=== PATIENT | male | born 2000 | race Caucasian/White ===

== ENCOUNTER 2020-10-22 19:17 | Emergency (ER) | payer OTHER ==
--- NOTE | 2020-10-22 19:51 | EDM.PDOC ---
ED HPI GENERAL MEDICAL PROBLEM - General Chief Complaint: Gastrointestinal Problem Stated Complaint: FLU SYMPTOMS RIGHT SIDE RIB AND SHOULDER PAIN Time Seen by Provider: 10/22/20 19:34 Source of Information: Reports: Patient, Other (Neighbor/friend) History Limitations: Reports: No Limitations - History of Present Illness INITIAL COMMENTS - FREE TEXT/NARRATIVE: Mr. Washington is a very pleasant 20-year-old gentleman who now presents the ED stating that he developed nausea, vomiting, watery diarrhea this past , 10/20/2020. He has also had abdominal cramps whenever he tries to eat or drink anything since evening. He then developed upper right anterior chest/shoulder, and lower right lateral rib pain today, however, that pain is only present if he takes a deep breath. No recent fever or cough, however, he states that he feels slightly dyspneic. No prior similar symptoms. The patient notes that several of his coworkers are similarly ill. The patient states that he took some ibuprofen yesterday, but none today. Here in the ED, the patient's initial BP is found to be mildly elevated at 147/83, with slight tachycardia of 103 bpm. He is afebrile, saturating 94% on room air. Prior to , the patient denies having a recent fever, chills, sore throat, ear pain, nasal or sinus congestion, cough, dyspnea, chest pain, palpitations, nausea, vomiting, constipation, diarrhea, abdominal pain, urinary symptoms, recent weight gain or weight loss, recent bloody bowel movements or black bowel movements, recent joint aches, headaches, or rashes. The patient's PCP is Dr. Harry Blank. He has not received an influenza vaccine this season, but is agreeable to getting one here in the ED tonight. - Related Data Allergies Allergy/AdvReac Type Severity Reaction Status Date / Time No Known Allergies Allergy Verified 10/22/20 19:27 Home Meds: Home Meds Escitalopram Oxalate [Lexapro] 20 mg PO DAILY 10/22/20 [History] Ondansetron [Zofran ODT] 1 tab PO Q8H PRN #10 tab.dis 10/22/20 [Rx] hydrOXYzine HCL [hydrOXYzine] 25 mg PO DAILY 10/22/20 [History] traZODone 50 mg PO DAILY 10/22/20 [History] Past Medical History Psychiatric History: Reports: Anxiety, Depression, PTSD Endocrine/Metabolic History: Reports: Obesity/BMI 30+ - Past Surgical History HEENT Surgical History: Reports: Oral Surgery (dental extractions) Social & Family History - Tobacco Use Tobacco Use Status *Q: Never Tobacco User Second Hand Smoke Exposure: No - Caffeine Use Caffeine Use: Reports: None - Alcohol Use Alcohol Use History: Yes Alcohol Use Frequency: Socially - Recreational Drug Use Recreational Drug Use: No - Living Situation & Occupation Living situation: Reports: Single, Other (with friends) Occupation: Employed ([employer]) ED ROS GENERAL - Review of Systems Review Of Systems: Comprehensive ROS is negative, except as noted in HPI. ED EXAM, GENERAL - Physical Exam Exam: See Below Exam Limited By: No Limitations General Appearance: Alert, WD/WN, No Apparent Distress Eye Exam: Bilateral Eye: EOMI, Normal Inspection Ears: Normal External Exam, Normal Canal, Hearing Grossly Normal, Normal TMs Nose: Normal Inspection, Normal Mucosa, No Blood Throat/Mouth: Normal Inspection, Normal Lips, Normal Teeth, Normal Gums, Normal Oropharynx, Normal Voice, No Airway Compromise Head: Atraumatic, Normocephalic Neck: Normal Inspection, Supple, Non-Tender, Full Range of Motion. No: Lymphadenopathy (L), Lymphadenopathy (R) Respiratory/Chest: No Respiratory Distress, Lungs Clear, Normal Breath Sounds, No Accessory Muscle Use, Chest Non-Tender. No: Decreased Breath Sounds, Crackles, Rhonchi, Wheezing, Stridor, Prolonged Expiration Cardiovascular: Normal Peripheral Pulses, Regular Rate, Rhythm, No Gallop, No JVD, No Murmur, No Rub Peripheral Pulses: 3+: Radial (L), Radial (R) GI/Abdominal: Normal Bowel Sounds, Soft, Non-Tender, No Organomegaly, No Distention, No Abnormal Bruit, No Mass Back Exam: Normal Inspection, Full Range of Motion, NT Extremities: Normal Inspection, Normal Range of Motion, Normal Capillary Refill Neurological: Alert, Oriented, Normal Cognition, No Motor/Sensory Deficits Psychiatric: Normal Affect Skin Exam: Warm, Dry, Intact, Normal Color, No Rash Course - Vital Signs Last Recorded V/S: Last Vital Signs Temp 36.3 C 10/22/20 19:24 Pulse 103 H 10/22/20 19:24 Resp 16 10/22/20 19:24 BP 147/83 H 10/22/20 19:24 Pulse Ox 94 L 10/22/20 19:24 - Orders/Labs/Meds Orders: Active Orders 24 hr Category Date Time Status Chest 2V [CR] Stat Exams 10/22/20 19:46 Taken CBC WITH MANUAL DIFF [HEME] Stat Lab 10/22/20 20:00 Results Labs: Laboratory Tests 10/22/20 10/22/20 10/22/20 Range/Units 20:00 20:00 20:00 WBC 6.85 (4.23-9.07) K/mm3 RBC 5.48 (4.63-6.08) M/mm3 Hgb 15.3 (13.7-17.5) gm/dl Hct 46.1 (40.1-51.0) % MCV 84.1 (79.0-92.2) fl MCH 27.9 (25.7-32.2) pg MCHC 33.2 (32.2-35.5) g/dl RDW Std Deviation 40.8 (35.1-43.9) fL Plt Count 271 (163-337) K/mm3 MPV 9.1 L (9.4-12.3) fl D-Dimer, Quantitative 0.49 (0.19-0.50) mg/L Sodium 142 (136-145) mEq/L Potassium 3.4 L (3.5-5.1) mEq/L Chloride 101 (98-107) mEq/L Carbon Dioxide 28 (21-32) mEq/L Anion Gap 16.4 H (5-15) BUN 12 (7-18) mg/dL Creatinine 0.9 (0.7-1.3) mg/dL Est Cr Clr Drug Dosing 146.73 mL/min Estimated GFR (MDRD) > 60 (>60) mL/min BUN/Creatinine Ratio 13.3 L (14-18) Glucose 90 (74-106) mg/dL Calcium 9.2 (8.5-10.1) mg/dL Magnesium 2.2 (1.8-2.4) mg/dl Total Bilirubin 0.5 (0.2-1.0) mg/dL AST 38 H (15-37) U/L ALT 91 H (16-63) U/L Alkaline Phosphatase 76 (46-116) U/L C-Reactive Protein 8.3 H* (<1.0) mg/dL Total Protein 7.8 (6.4-8.2) g/dl Albumin 3.9 (3.4-5.0) g/dl Globulin 3.9 gm/dL Albumin/Globulin Ratio 1.0 (1-2) Influenza Type A RNA (NEGATIVE) Influenza Type B RNA (NEGATIVE) SARS-CoV-2 RNA (MELISSA) (NEGATIVE) 10/22/20 Range/Units 20:00 WBC (4.23-9.07) K/mm3 RBC (4.63-6.08) M/mm3 Hgb (13.7-17.5) gm/dl Hct (40.1-51.0) % MCV (79.0-92.2) fl MCH (25.7-32.2) pg MCHC (32.2-35.5) g/dl RDW Std Deviation (35.1-43.9) fL Plt Count (163-337) K/mm3 MPV (9.4-12.3) fl D-Dimer, Quantitative (0.19-0.50) mg/L Sodium (136-145) mEq/L Potassium (3.5-5.1) mEq/L Chloride (98-107) mEq/L Carbon Dioxide (21-32) mEq/L Anion Gap (5-15) BUN (7-18) mg/dL Creatinine (0.7-1.3) mg/dL Est Cr Clr Drug Dosing mL/min Estimated GFR (MDRD) (>60) mL/min BUN/Creatinine Ratio (14-18) Glucose (74-106) mg/dL Calcium (8.5-10.1) mg/dL Magnesium (1.8-2.4) mg/dl Total Bilirubin (0.2-1.0) mg/dL AST (15-37) U/L ALT (16-63) U/L Alkaline Phosphatase (46-116) U/L C-Reactive Protein (<1.0) mg/dL Total Protein (6.4-8.2) g/dl Albumin (3.4-5.0) g/dl Globulin gm/dL Albumin/Globulin Ratio (1-2) Influenza Type A RNA Negative (NEGATIVE) Influenza Type B RNA Negative (NEGATIVE) SARS-CoV-2 RNA (MELISSA) Negative (NEGATIVE) - Re-Assessments/Exams Free Text/Narrative Re-Assessment/Exam: 10/22/20 19:48 As above, the patient developed nausea, vomiting, watery diarrhea, and abdominal pain whenever he ate anything, this past , then upper right anterior chest and lower right lateral chest pain with deep inspirations today. No recent fever or cough, however, he does feel slightly dyspneic. His physical exam is unremarkable. I have ordered a work-up that includes several blood tests, a swab for the SARS-CoV-2 virus and influenza, and a chest x-ray. 10/22/20 20:18 Two-view chest radiograph appears to be grossly normal. The cardiac silhouette is within normal limits. No pulmonary vascular congestion. No pleural effusions. No focal infiltrate. No pneumothorax. Formal read per the Radiologist pending. 10/22/20 21:11 The patient's CBC is unremarkable. His CMP is remarkable for slight hypokalemia of 3.4, and an anion gap slightly elevated at 16.4, but with a bicarbonate normal at 28. His AST/ALT are slightly elevated at 38/91, respectively, with the remainder of his CMP being unremarkable. His magnesium level is within normal limits at 2.2. His CRP is elevated at 8.3. His D-dimer is within normal limits at 0.49. His swab for the SARS-CoV-2 virus and influenza virus returned negative. 10/22/20 21:15 Test results discussed with the patient and his friend. As above, with the exception of a modestly elevated CRP, his work-up tonight was unremarkable. The patient is likely suffering from viral gastroenteritis. I will prescribe Zofran ODT, and he can take OTC loperamide. He requested a note to be off work until Saturday. Departure - Departure Time of Disposition: 21:16 Disposition: Home, Self-Care 01 Condition: Good Clinical Impression: Viral URI - Discharge Information *PRESCRIPTION DRUG MONITORING PROGRAM REVIEWED*: Not Applicable *COPY OF PRESCRIPTION DRUG MONITORING REPORT IN PATIENT STEVEN: Not Applicable Referrals: Harry Blank Jr, MD [Primary Care Provider] - Forms: ED Department Discharge, ED Return to Work/School Form Additional Instructions: You were seen in the emergency room for nausea, vomiting, and diarrhea, with abdominal cramps whenever you eat or drink something, since , then upper right shoulder and lower right rib pain today. Work-up in the ER included several blood tests, a chest x-ray, and a swab for the SARS-CoV-2 virus and influenza virus. Your CRP, a measure of inflammation, returned modestly elevated, otherwise, your entire work-up was unremarkable. You do not have pneumonia. You do not have a blood clot in your lungs. You do not have COVID-19 or influenza. Based on your history, physical exam, and ER tests, you are most likely suffering from viral gastroenteritis. Unfortunately, there are no medicines to treat viral gastroenteritis - it will have to run its course. A prescription for the antinausea medicine Zofran has been sent to the [facility], located in the [facility] grocery store. You may dissolve 1 tablet of Zofran on your tongue up to every 8 hours, as needed for nausea/vomiting. Stay adequately hydrated. Gatorade or Powerade are best. We recommend that you avoid juice and milk, as these may make your diarrhea worse. If your diarrhea persists, you may take [id number] loperamide (Imodium AD), as directed on the label. A note to be off work until Saturday has been provided to you. If any other problems, please do not hesitate to return to the ER. Sepsis Event Note (ED) - Evaluation Sepsis Screening Result: No Definite Risk - Focused Exam Vital Signs: Vital Signs Temp Pulse Resp BP Pulse Ox 10/22/20 19:24 36.3 C 103 H 16 147/83 H 94 L - My Orders Last 24 Hours: My Active Orders 10/22/20 19:46 Chest 2V [CR] Stat 10/22/20 20:00 CBC WITH MANUAL DIFF [HEME] Stat - Assessment/Plan Last 24 Hours: My Active Orders 10/22/20 19:46 Chest 2V [CR] Stat 10/22/20 20:00 CBC WITH MANUAL DIFF [HEME] Stat
[2020-10-22 20:44] LABS: CORONAVIRUS COVID-19 NAA NEGATIVE (NEGATIVE)
--- NOTE | 2020-10-23 09:45 | CR ---
Chest: 2 views of the chest were obtained. Comparison: No previous chest imaging is available. Heart size and mediastinum are normal. Right hemidiaphragm is elevated which is most likely chronic. Minimal atelectasis is seen within the right lung base. Lungs otherwise are clear. Bony structures are unremarkable. Impression: 1. Elevated right hemidiaphragm which is most likely chronic. 2. Minimal right basilar atelectasis. 3. Nothing acute is otherwise seen. Diagnostic code #2
== END 2020-10-22 21:32 | disposition home or self-care (01) ==
LOC: JD.ED 19:17
DX: J06.9 Acute upper respiratory infection, unspecified (principal); R07.81 Pleurodynia; E66.9 Obesity, unspecified; Z68.41 Body mass index [BMI] 40.0-44.9, adult; Z20.822 Contact with and (suspected) exposure to COVID-19
CPT/HCPCS: 0240U; 36415; 71046; 80053; 83735; 85007; 85027; 85379; 86140; 99284; 99283